=== PATIENT | female | born 1990 | race Caucasian/White ===

== ENCOUNTER 2019-04-20 21:30 | Inpatient (IN) ==
[2019-04-20] MEDS ORDERED: OXYTOCIN 30 UNITS/500 ML BAG IV PRN (21:42)
[2019-04-20] MEDS ORDERED: LACTATED RINGER'S 1,000 ML IV PRN (21:45)
[2019-04-20 22:13] LABS: Hematocrit (blood only) 42.7 % (37-47); Hemoglobin 14.7 g/dL (12.0-16.0); Mean Corpuscular Hemoglobin 32.3 pg (25-34); Mean Corpuscular Volume 93.8 fL (80-100); Platelet Count 145 K/uL (130-400); RDW Coefficient of Variation 13.4 % (11.5-14.5); RDW Standard Deviation 45.8 fL (36.4-46.3); Red Blood Count 4.55 M/uL (4.2-5.4); White Blood Count 13.12 K/uL (4.8-10.8)
[2019-04-20 22:25] LABS: Mean Corpuscular Hgb Conc 34.4 g/dL (32-36)
--- NOTE | 2019-04-20 22:35 | History & Physical Report ---
Date of Service April 20, 2019 Assessment & Plan (1) : fetus category one (2) Normal labor: aadmit patient. Not sure if she wants epidural. Offered arom. considering. anticipate . will get HIV on admit labs. Too late for gc/ct. History of Present Illness Chief Complaint: contractions Primary Care Provider: NO PCP Patient is a 28 yowf with iup at 40 weeks who presents to labor and delivery complaining of contractions all day. no lof/vb. +FM. Contractions over last hour or so prior to presentation were q4-6 min. has been uncomplicated. [place] from [place] at 23 weeks. labs--O+/ab-/ pap nl/ri/rprnr/hep b-/ cf/sma negative/ declined genetics/nl anatomy us/gbs neg ct/gc and HIV not available Allergies Allergy/AdvReac Type Severity Reaction Status Date / Time Sulfa (Sulfonamide Allergy Verified 04/14/19 13:32 Antibiotics) Home Medications Home Medications Medication Instructions Recorded Confirmed Type vit no.[id number] 1 tab PO DAILY 04/20/19 04/20/19 History [ Vitamin] Patient History Social History (Updated 01/06/19 @ 10:09 by Ann-Marie Bustamante) Preferred Language: Colombian Communication Ability: Effective Spanish Tutor Required: No Beliefs That Will Affect Care: None marital status: Current Living Situation: Spouse Other Information That Helps Us Care for You: No Feels Safe at Home: Yes Safety Concerns: Feels Safe At This Time Smoking Status: Never smoker Hx Alcohol Use: No Hx Substance Use: No 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
--- NOTE | 2019-04-20 22:41 | Communication Note ---
Date of Service: April 20, 2019 arom, clear cx--9100/0 toco--q2-3 min efm--140s with mod variability, accels to 160s, no decels a/p--term labor, category one. anticipate .
[2019-04-20] MEDS ORDERED: fentaNYL citrate 100 MCG/2 ML VIAL ONE (22:58)
[2019-04-20] MEDS ORDERED: ePHEDrine sulfate 50 MG/ML AMP ONE (22:58)
[2019-04-20] MEDS ORDERED: fentaNYL 2MCG/ML ROPIV 1.25MG/ML 100 ML BAG EPI ONE (22:58)
[2019-04-20] MEDS ORDERED: BUPIVACAINE 0.25% 30 ML VIAL ONE (22:58)
--- NOTE | 2019-04-20 23:31 | Anesthesiology Consultation ---
Date of Service April 20, 2019 Assessment & Plan Chart Review Chart Review: Patient NOT seen in Pre Admission Testing and Acceptable Risk for Labor Epidural Consults Requested none ASA ASA2 Proposed Anesthesia Anesthesia Type: Labor Epidural and CSE Risk / Benefits Reviewed With: PT / POA / Parent / Guardian, Accepts Plan and Informed Consent Obtained History Height/Weight Height: 5 ft 4 in Weight: 63.503 kg Allergies Allergy/AdvReac Type Severity Reaction Status Date / Time Sulfa (Sulfonamide Allergy Verified 04/14/19 13:32 Antibiotics) Medications Home Medications Medication Instructions Recorded Confirmed Last Taken vit no.[id number] 1 tab PO DAILY 04/20/19 04/20/19 04/20/19 [ Vitamin] Active Medications Generic Name Dose Route Start Last Admin Trade Name Freq PRN Reason Stop Dose Admin Lactated Ringer's 1,000 mls @ 125 mls/hr 04/20/19 21:45 04/20/19 22:45 Lr IV 04/22/19 21:44 125 mls/hr .Q8H PRN Infusion L&D Protocol Protocol NPO Date Last Intake of Fluids: 04/20/19 Time Last Intake of Fluids: 21:00 Date Last Intake of Solids: 04/20/19 Time Last Intake of Solids: 16:00 Past Medical History Medical History Varicella vaccination [place] teeth removed Exercise / Class Metabolic Activity II 4-5 Yardwork/Stairs/Walk up hill Past Family History Family History Other delivery Past Surgical History Surgical History No pertinent past surgical history Past Anesthesia History No Hx of Anesthesia Complications and No Family Hx of Anesthesia Complications History of PONV No Hx of PONV and No Hx of Motion Sickness Social History Smoking Status: Never smoker Hx Alcohol Use: No Hx Substance Use: No substance use type: does not use Review of Systems no chest pain or sob Physical Exam Vital Signs Last Vital Signs Temp 37.1 C 04/20/19 22:28 Pulse 83 04/20/19 23:26 Resp 20 04/20/19 22:28 BP 141/72 H 04/20/19 22:28 Pulse Ox 99 04/20/19 23:26 ENMT Mouth: no TMJ abnormality Thyromental Distance: > or= 3.5 Finger Breadths Mallampati Class: II Neck normal visual inspection Respiratory normal respiratory effort Auscultation: lungs clear to auscultation bilaterally Cardiovascular Rate/Rhythm: regular rate and regular rhythm Musculoskeletal Spine: normal cervical ROM Neurologic moves all extremities Psychiatric Orientation: alert and oriented x 3 Testing Laboratory Results 04/20/19 21:56
[2019-04-20] MEDS: OXYTOCIN 30 UNITS/500 ML BAG IV PRN (23:57)
[2019-04-21] MEDS ORDERED: ACETAMINOPHEN 325 MG TAB PO PRN (00:23)
[2019-04-21] MEDS ORDERED: OXYCODONE/ACETAMINOPHEN 5mg/325mg TAB PO PRN (00:23)
[2019-04-21] MEDS ORDERED: IBUPROFEN 600 MG TAB PO PRN (00:23)
--- NOTE | 2019-04-21 00:27 | Delivery Summary ---
Vaginal Delivery Summary Date of Service April 21, 2019 Vaginal Delivery Summary Pre-operative Diagnosis: at 40 weeks active labor Post-operative Diagnosis: same Procedure: arom third degree laceration with repair EBL: 450cc Anesthesia: local infiltration of lidocaine Procedure: Pthilray underwent arom for clear fluid at 9cm. When she was 10 cm and +1 station, she started pushing. During pushing the small hymenal remnant that went from 11-6 across the introitus was snipped with scissors at 6. The patient pushed for 15 minutes to deliver a viable male infant in zhang position. The nose and mouth were bulb suctioned on the perineum, a lose nuchal cord x 1 reduced easily and the rest of the infant was then delivered without difficulty. The baby was vigorous. The nose and mouth were again bulb suctioned and the infant was placed in the maternal abdomen for drying and attention. Cord was clamped and cut at one minute of life. Cord blood and segment obtained. Placenta delivered spontaneous, intact with a three vessel cord. Cervix/zuñiga lci/rectum were intact. A third degree perineal laceration was repaired in the normal standard fashion. Hemostasis obtained with dilute pitocin and fundal massage. Apgars were 8/9. Mother and baby doing well at the end of the delivery. [facility]NP Vaginal Delivery Charge Vaginal Delivery Codes: 83424 global code for the antepartum, delivery, and post-
[2019-04-21] MEDS ORDERED: BISACODYL 10 MG SUPP PR PRN (00:40)
[2019-04-21] MEDS ORDERED: BENZOCAINE 20% AER SPR 82.5 GM CAN EXT PRN (00:40)
[2019-04-21] MEDS ORDERED: SUPERCREAM 0.870% 15 GM JAR EXT PRN (00:40)
[2019-04-21] MEDS ORDERED: HYDROCORTISONE ACETATE 25 MG SUPP PR PRN (00:40)
[2019-04-21] MEDS ORDERED: DIPHTHERIA/TETANUS/PERTUSSIS 0.5 ML SYR/VIAL IM ONE (00:40)
[2019-04-21] MEDS: OXYTOCIN 30 UNITS/500 ML BAG IV PRN (00:58)
--- NOTE | 2019-04-21 06:12 | Obstetrical Progress Note ---
Date of Service <Thomas Bowen DO - Last Filed: 04/21/19 06:12> April 21, 2019 Assessment & Plan <Thomas Bowen DO - Last Filed: 04/21/19 06:12> (1) : -PPD#1 -Vitals reviewed, WNL (Tmax 37.2) - GBS -, Blood Type O+ - Clinically stable. - Feels well today. Eating well, voiding well, ambulating well. - Pain well controlled. - Routine post- care - After discharge will have [address] Lashell Brown #:: 1 Subjective <Thomas Bowen DO - Last Filed: 04/21/19 06:12> Ambulation: ambulating normally Voiding: no voiding problems Passing Gas:: Yes Diet Tolerance:: regular diet Lochia:: Moderate Feeding Type:: breast feeding Current Pain Level(1-10): 0 (improved with analgesics) Patient is a 28 PPD#1. Patient delivered the previous night at 23:53. Patient states that she is feeling well today and that her pain is well controlled. She has no other complaints at this time. She hopes to leave by Thursday as she does not want to deal with [employer] traffic. Constitutional: no fever and no chills Respiratory: no cough, no dyspnea and no wheezing Cardiovascular: no chest pain, no dyspnea, no palpitations, no edema and no calf pain Breast: no breast pain Gastrointestinal: no abdominal pain, no nausea and no vomiting Genitourinary (female): no dysuria and no difficulty urinating Neurologic: no headache(s) Physical Exam <DO Daquan Castro Last Filed: 04/21/19 06:12> Constitutional WD/WN, vitals as above Respiratory normal respiratory effort, lungs clear to auscultation Cardiovascular Rate/Rhythm: regular rate and regular rhythm Heart Sounds: normal S1 and normal S2; no click, no gallop, no murmur and no cardiac rub Extremities: no calf tenderness and no edema Gastrointestinal (Abdomen) Inspection/Auscultation: abdomen normal to inspection and normal bowel sounds Percussion/Palpation: abdomen soft; abdomen nontender Genitourinary OB Exam Abdomen: + fundal height Fundus: + firm and + relation to umbilicus (at umbilicus, patient has not voided this AM yet); not tender and not boggy Results & Data <Thomas MckeonDO cricket - Last Filed: 04/21/19 06:12> Vital Signs (Past 12 Hours) Vital Signs Temp Pulse Pulse Resp BP BP Pulse Ox 04/21/19 04:20 36.9 C 69 18 131/70 04/21/19 02:45 37.2 C 18 109/56 L 04/21/19 02:19 75 18 120/68 04/21/19 02:10 71 126/71 04/21/19 02:00 67 18 130/70 04/21/19 01:50 75 123/64 04/21/19 01:40 89 115/66 04/21/19 01:30 90 18 128/66 04/21/19 01:20 80 131/71 04/21/19 01:11 77 131/69 04/21/19 01:01 78 133/71 04/21/19 00:51 86 131/97 04/21/19 00:41 77 135/63 04/21/19 00:31 87 20 160/70 H 04/21/19 00:25 93 H 155/101 H 04/21/19 00:21 104 H 93 04/21/19 00:16 115 H 100 04/21/19 00:15 104 H 130/65 04/21/19 00:11 104 H 100 04/21/19 00:06 107 H 100 04/21/19 00:05 108 H 145/69 H 04/21/19 00:01 95 H 100 04/20/19 23:56 100 H 98 04/20/19 23:55 171 H 126/82 04/20/19 23:53 119 H 91 04/20/19 23:51 111 H 98 04/20/19 23:47 111 H 88 L 04/20/19 23:46 117 H 99 04/20/19 23:42 111 H 92 04/20/19 23:41 80 99 04/20/19 23:36 98 H 20 98 04/20/19 23:31 87 100 04/20/19 23:30 36.7 C 74 20 127/75 04/20/19 23:26 83 99 04/20/19 23:21 91 H 100 04/20/19 23:16 78 99 04/20/19 23:11 90 100 04/20/19 22:30 37.1 C 20 04/20/19 22:28 37.1 C 96 H 20 141/72 H 04/20/19 21:54 36.7 C 20 04/20/19 21:41 83 149/82 H <Mary Lobo MD, FACOG - Last Filed: 04/21/19 06:42> Co-Signing Physician Notes Resident Physician Supervision Note: I interviewed and examined the patient. Discussed with Dr. Bowen and agree with findings and plan as documented in the note. Any exceptions or clarifications are listed here: Doing well. Routine care. MMR today. On review of records, notes gc/ct done, just do not see results. May need patient to get/look up. Documented By: Mary Lobo MD, FACOG Resident Activity Tracking <Thomas Bowen DO - Last Filed: 04/21/19 06:12> Resident Involvement: Resident Care Provided Care Provided: OB Delivery
[2019-04-21] MEDS: PRENATAL VITAMIN 1 TAB PO SCH (09:01)
[2019-04-21] MEDS: DOCUSATE SODIUM 100 MG CAP PO SCH ×2 (09:01→20:24)
--- NOTE | 2019-04-22 06:39 | Obstetrical Progress Note ---
Date of Service <Thomas Bowen DO - Last Filed: 04/22/19 06:43> April 22, 2019 Assessment & Plan <DO Daquan Castro Last Filed: 04/22/19 06:43> (1) : -PPD#2 -Vitals reviewed, WNL (Tmax 36.8) - GBS -, Blood Type O+ - Clinically stable. - Feels well today. Eating well, voiding well, ambulating well. - Pain well controlled. - Routine post- care - After discharge will have [address] Lashell Brown #:: 2 Subjective <Thomas MckeonnDO - Last Filed: 04/22/19 06:43> Ambulation: ambulating normally Voiding: no voiding problems Passing Gas:: Yes Diet Tolerance:: regular diet Lochia:: Small Feeding Type:: breast feeding Current Pain Level(1-10): 1 (only with feedings, not requiring analgesics) Patient is a 28 PPD#2, had delivered at 11PM the previous day. Patient states that she is feeling well today and that her pain is well controlled. She has no other complaints at this time. Constitutional: no fever and no chills Respiratory: no cough, no dyspnea and no wheezing Cardiovascular: no chest pain, no dyspnea, no palpitations, no edema and no calf pain Breast: no breast pain Gastrointestinal: no abdominal pain, no nausea and no vomiting Genitourinary (female): no dysuria and no difficulty urinating Neurologic: + headache(s) (dull front sided headache, mild) Physical Exam <Thomas MckeonnDO Butt Last Filed: 04/22/19 06:43> Constitutional WD/WN, vitals as above Respiratory normal respiratory effort, lungs clear to auscultation Cardiovascular Rate/Rhythm: regular rate and regular rhythm Heart Sounds: normal S1 and normal S2; no click, no gallop, no murmur and no cardiac rub Extremities: no calf tenderness and no edema Gastrointestinal (Abdomen) Inspection/Auscultation: abdomen normal to inspection and normal bowel sounds Percussion/Palpation: abdomen soft; abdomen nontender Genitourinary OB Exam Abdomen: + fundal height Fundus: + firm and + relation to umbilicus (2cm below); not tender and not boggy Results & Data <Thomas HurdDO dereje - Last Filed: 04/22/19 06:43> Vital Signs (Past 12 Hours) Vital Signs Temp Pulse Resp BP Pulse Ox 04/21/19 23:20 36.8 C 65 16 121/72 97 04/21/19 20:10 36.6 C 72 16 122/76 97 <Guy Salgado MD - Last Filed: 04/22/19 08:04> Co-Signing Physician Notes Patient seen and evaluated and agree with the above findings and plan. Stable for discharge Resident Activity Tracking <Thomas Bowen DO - Last Filed: 04/22/19 06:43> Resident Involvement: Resident Care Provided Care Provided: OB Delivery
[2019-04-22 08:09] LABS: Hematocrit (blood only) 37.3 % (37-47); Hemoglobin 12.6 g/dL (12.0-16.0)
[2019-04-22] MEDS: PRENATAL VITAMIN 1 TAB PO SCH (08:10)
[2019-04-22] MEDS: DOCUSATE SODIUM 100 MG CAP PO SCH (08:10)
[2019-04-22] MEDS ORDERED: BISACODYL 5 MG TABEC PO SCH (20:00)
== END 2019-04-22 14:55 | disposition home or self-care (01) | DRG 768 ==
LOC: OPB 21:30 → 4S1 21:33 → 4S2 04-21 02:30

== ENCOUNTER 2021-07-12 06:36 | Inpatient (IN) ==
[2021-07-12] MEDS ORDERED: LIDOCAINE 1% LOCAL 20 ML VIAL ONE (06:51)
--- NOTE | 2021-07-12 07:06 | Delivery Summary ---
Vaginal Delivery Summary Date of Service July 12, 2021 Vaginal Delivery Summary DIAGNOSES: 1. Aden intrauterine at 40w gestation. 2. Spontaneous onset of labor. 3. Group B Streptococcus Neg. PROCEDURE: Spontaneous vaginal delivery and repair of 2nd degree laceration. SURGEON: Meera Dover MD. PET CARE ASSISTANT: None. ESTIMATED BLOOD LOSS: 300 mL. COMPLICATIONS: None. PLACENTA: Spontaneous and intact with a 3-vessel cord. DISPOSITION: Stable to labor and delivery. DESCRIPTION: The patient pushed well and brought the head to in REJI position. The infant's head was allowed to deliver with contraction force and no further active pushing, with the perineum protected during this time. There was no nuchal cord. The left shoulder was anterior. The shoulders and body delivered without any difficulty, and the infant was placed on the maternal abdomen. It was vigorous and moving all extremities, and making respiratory efforts. The cord was doubly clamped by the MD and then cut by a medical student. The placenta delivered spontaneously and was noted to be intact and with a 3VC. The cervix, vagina and perineum were examined and were found to have a second degree laceration which was infiltrated with lidocaine and then repaired using 2-0 vicryl in the usual manner. The fundus was firm and lochia minimal immediately after delivery. 10u IM pitocin administered since no IV had been established yet. [facility] Vaginal Delivery Charge Vaginal Delivery Codes: 96733 global code for the antepartum, delivery, and post-
[2021-07-12] MEDS ORDERED: DIPHTHERIA/TETANUS/PERTUSSIS 0.5 ML SYR/VIAL IM ONE (07:10)
[2021-07-12] MEDS ORDERED: OXYTOCIN 10 UNITS/ML 10ML VIAL IM ONE (07:10)
[2021-07-12] MEDS ORDERED: SUPERCREAM 0.870% 15 GM JAR EXT PRN (07:10)
[2021-07-12] MEDS ORDERED: BENZOCAINE 20% AER SPR 82.5 GM CAN EXT PRN (07:10)
[2021-07-12] MEDS ORDERED: HYDROCORTISONE ACETATE 25 MG SUPP PR PRN (07:10)
[2021-07-12] MEDS ORDERED: ACETAMINOPHEN 325 MG TAB PO PRN (07:10)
[2021-07-12] MEDS ORDERED: oxyCODONE/ACETAMINOPHEN 5mg/325mg TAB PO PRN (07:10)
[2021-07-12] MEDS ORDERED: LACTATED RINGER'S 1,000 ML IV SCH (07:15)
[2021-07-12] MEDS: DOCUSATE SODIUM 100 MG CAP PO SCH ×2 (09:50→20:01)
[2021-07-12] MEDS: PRENATAL VITAMIN 1 TAB PO SCH (09:50)
[2021-07-12] MEDS: IBUPROFEN 600 MG TAB PO PRN ×2 (12:12→19:22)
[2021-07-13 01:20] VITALS: O2SAT 97
[2021-07-13] MEDS: IBUPROFEN 600 MG TAB PO PRN (03:30)
--- NOTE | 2021-07-13 06:08 | Obstetrical Progress Note ---
Date of Service <Kimber MonteiroDO - Last Filed: 07/13/21 06:25> July 13, 2021 Assessment & Plan <Kimberbecky Monteiro DO - Last Filed: 07/13/21 06:25> (1) Encounter for care and examination after delivery: 30 yo post op day1 from , doing well. -Continue routine post care. -vital signs reviewed and WNL (Tmax 36.8) -Blood Type O+, GBS-, Rubella immune -Encourage ambulation, monitor and control pain with Motrin, tylenol PRN, resume regular diet, monitor lochia -encourage breast feeding -hemoglobin 11.5 -patient comfortable with discharge today Day #:: 1 <Yolie Velásquez MD - Last Filed: 07/13/21 06:51> (1) Encounter for care and examination after delivery: Subjective <Kimber CayetanoDO - Last Filed: 07/13/21 06:25> Ambulation: ambulating normally Voiding: no voiding problems Passing Gas:: No Diet Tolerance:: regular diet Lochia:: Moderate Feeding Type:: breast feeding Current Pain Level(1-10): 0 Review of Systems Denies fever, chills, sweats Denies shortness of breath, difficulty breathing, chest pain, palpitations, chest pressure. Denies breast pain. Denies dysuria. Denies headache or changes in vision. Physical Exam <Kmiber CayetanoDO - Last Filed: 07/13/21 06:25> General: Alert, oriented. No acute distress. Cardiac: Regular rate and rhythm, no murmurs/rubs/gallops. Respiratory: Clear to auscultation bilaterally a/p, no wheezes/rales/rhonchi. No increased work of breathing. Symmetrical chest rise. No respiratory distress. Abdomen: Soft, nontender, nondistended. Bowel sounds present. Uterus: Uterine fundus firm, palpable 2 cm below umbilicus. Lower Extremities: No lower extremity edema or swelling. No deep calf pain. Jennifer's negative bilaterally.. Results & Data ([facility]) <Kimberbecky Monteiro DO - Last Filed: 07/13/21 06:25> Vital Signs (Past 12 Hours) Vital Signs Temp Pulse Pulse Resp BP Pulse Ox 07/13/21 03:30 36.8 C 66 18 119/76 07/13/21 00:05 36.8 C 60 18 136/80 97 07/12/21 19:17 36.8 C 81 16 130/79 96 <Yolie Velásquez MD - Last Filed: 07/13/21 06:51> Co-Signing Physician Notes Resident Physician Supervision Note: I interviewed and examined the patient. Discussed with Dr. Velásquez and agree with findings and plan as documented in the note. Any exceptions or clarifications are listed here: PP1 s/p , doing well. Meeting all pp milestones. VSS, exam wnl. Desires d/c home today, stable to do so. Documented By: Yolie Velásquez MD Resident Activity Tracking <Kimber Monteiro DO - Last Filed: 07/13/21 06:25> Resident Involvement: Resident Care Provided Care Provided: Adult Hospital Medicine
[2021-07-13 06:27] LABS: Hematocrit (blood only) 36.3 % (37-47); Hemoglobin 12.2 g/dL (12.0-16.0); Mean Corpuscular Hemoglobin 31.6 pg (25-34); Mean Corpuscular Hgb Conc 33.6 g/dL (32-36); Mean Platelet Volume 12.4 fL (7.4-10.4); Platelet Count 150 K/uL (130-400); RDW Coefficient of Variation 13.4 % (11.5-14.5); Red Blood Count 3.86 M/uL (4.2-5.4); White Blood Count 11.92 K/uL (4.8-10.8)
[2021-07-13] MEDS: PRENATAL VITAMIN 1 TAB PO SCH (08:28)
[2021-07-13] MEDS: DOCUSATE SODIUM 100 MG CAP PO SCH (08:28)
[2021-07-13 09:12] VITALS: BP 114/77; TEMP 98.1
[2021-07-13 09:35] VITALS: PULSE 81
== END 2021-07-13 10:44 | disposition home or self-care (01) | DRG 807 ==
LOC: OPB 06:36 → 4S1 06:39 → 4S2 10:10